=== PATIENT | female | born 2000 | race Two or more races ===

== ENCOUNTER 2024-10-20 00:14 | Emergency (ER) | payer OTHER, MEDICAID ==
[~2024-10-20] VITALS: Ht 162.6 cm; Wt 113.0 kg
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
[2024-10-20] MEDS ORDERED: ACET500T58 PO (02:18)
[2024-10-20] MEDS ORDERED: IBUP-1455 PO (02:18)
[2024-10-20] MEDS: HYDROcodone-ACET 10/325MG TAB PO ONE (02:45)
[2024-10-20 02:46] VITALS: BP 135/96; PULSE 84; RESP 18; TEMP 98.8; O2SAT 97
== END 2024-10-20 02:46 | disposition home or self-care (01) ==
LOC: EDBD 00:14 → ER 00:14
DX: S80.02XA Contusion of left knee, initial encounter (principal); S40.012A Contusion of left shoulder, initial encounter; V89.2XXA Person injured in unspecified motor-vehicle accident, traffic, initial encounter; Y93.89 Activity, other specified; Y92.89 Other specified places as the place of occurrence of the external cause; Y99.8 Other external cause status
CPT/HCPCS: 73030; 73562